=== PATIENT | male | born 1945 | race Caucasian/White ===

== ENCOUNTER 2022-07-11 08:56 | Outpatient (REF) | payer MEDICARE, SELFPAY ==
--- NOTE | ~2022-07-11 | CT_ITS ---
EXAMINATION: CT HEAD WITHOUT CONTRAST CLINICAL INFORMATION: 77-year-old with mild cognitive impairment. COMPARISON: 12/22/2021 CT brain. TECHNIQUE: Contiguous axial imaging was performed from the skull base to vertex without intravenous administration of contrast. This CT examination was performed using dose optimization techniques as appropriate, variously including the following: *Automated exposure control *Adjustment of mA and/or kV according to patient size (this includes techniques or standardized protocols for targeted exams where dose is matched to indication/reason for exam; i.e. extremities or head) *Use of iterative reconstruction technique DLP: 750.00 mGy-cm FINDINGS: Brain Volume: Redemonstrated is moderate generalized supratentorial brain parenchymal volume loss and predominantly mild diffuse generalized cerebellar volume loss and [id number] vermian volume loss, stable in appearance. Structural: Cavum septum pellucidum again noted with prominence of the superior vermian cistern, stable in appearance. Brain and Meninges: Redemonstrated are scattered patchy and focally confluent zones of hypodensity in the subcortical and deep white matter of both cerebral hemispheres, similar in appearance to the previous study consistent with chronic ischemic microangiopathy. Small chronic lacunar infarct versus perivascular space in the left external capsule is stable. No acute territorial infarct, hemorrhage, extra-axial fluid collection, space-occupying process or mass effect. There is a 2.5 mm hypodensity in the posterior limb of the left internal capsule, which is a new finding since previous exam, and may reflect a tiny lacunar infarct. There is a tiny hypodensity in the ventral hector slightly to the left of midline which is difficult to visualize on the previous study and may reflect a tiny remote infarct since the previous study. Ventricles and Subarachnoid Spaces: Redemonstrated is 3rd and lateral ventriculomegaly and mild 4th ventriculomegaly largely stable in appearance, likely reflecting volume loss. Diffuse prominence of the sulcal spaces bilaterally consistent with volume loss again noted. Orbital Structures: No interval change. Bilateral lens extractions again noted. Osseous Structures, Sinuses/Mastoids, Extracranial Soft Tissues: The bony structures appear intact with a stable deformity of the anterior right frontal calvarium as noted on previous study. The visualized airspaces are unopacified, with bilateral medial maxillary antrostomies noted. The visualized extracranial soft tissue structures are unremarkable. CT/CT head/brain wo IV con IMPRESSION: 1. Findings consistent with chronic ischemic microangiopathy in the white matter of both cerebral hemispheres similar in appearance to the previous study. No acute territorial infarct, hemorrhage, extra-axial fluid collection, space-occupying process or mass effect. 2. Possible tiny, chronic lacunar infarcts in the posterior limb of the left internal capsule and ventral hector, new from previous study. 3. Stable ventriculomegaly likely reflecting volume loss. 4. 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
== END 2022-07-11 08:57 | disposition home or self-care (01) ==
LOC: HO.CT 08:56
PROVIDERS: PCP Internal Medicine; Visit Provider Psychiatry & Neurology Neurology
DX: G31.84 Mild cognitive impairment of uncertain or unknown etiology (principal)
CPT/HCPCS: 70450

== ENCOUNTER 2023-07-27 07:19 | Day surgery (SDC) | payer MEDICARE, SELFPAY ==
--- NOTE | 2023-07-25 11:48 | HO.ANESPROP2 ---
Documented by User: Doris Mcgowan NP 07/26/23 09:59 HPI - Anesthesia Eval Consult details Narrative: 78yo M for Upper Endoscopy and Colonoscopy Follows [facility] cardiology - Stable at last office visit 07/2022 [facility] Past Medical History Medical History Afib Pacemaker Environmental allergies Anxiety COPD (chronic obstructive pulmonary disease) Hypertriglyceridemia GERD (gastroesophageal reflux disease) HTN (hypertension) Surgical History Surgical History Hx of esophagogastroduodenoscopy Hx of colonoscopy Social History Social History Patient Tobacco Use Status: Never used Tobacco Are you DNR?: No Advance Directives: No Advance Directives Information Provided: Yes Nutrition Risks: No Nutritional Risk Meds Allergies Allergy/AdvReac Type Severity Reaction Status Date / Time shellfish derived Allergy Unknown ANAPHYLAXIS Verified 07/27/23 08:05 [SHELLFISH DERIVED] Home Medications ?Medication ?Instructions ?Recorded ?Confirmed ?Last Taken ?Type Vitamin D3 1 cap PO DAILY 07/25/23 07/25/23 Unknown History albuterol sulfate 90 mcg/actuation 2 puff inhalation QID PRN asthma 07/25/23 07/25/23 Unknown History aerosol inhaler amlodipine 10 mg tablet 10 mg PO DAILY 07/25/23 07/25/23 07/27/23 History benralizumab 30 mg/mL subcutaneous 30 mg subcut 07/25/23 Unknown History auto-injector (Fasenra Pen) buspirone 7.5 mg tablet 7.5 mg PO BID 07/25/23 07/25/23 Unknown History dabigatran etexilate 150 mg capsule 150 mg PO DAILY 07/25/23 07/25/23 07/23/23 History fenofibrate micronized 200 mg 200 mg PO DAILY 07/25/23 07/25/23 Unknown History capsule fluticasone fur. 200 mcg-umeclid 1 ea inhalation DAILY 07/25/23 07/25/23 Unknown History 62.5 mcg-vilant 25 mcg inhalat.powder (Trelegy Ellipta) hydralazine 25 mg tablet 25 mg PO TID 07/25/23 07/25/23 Unknown History lisinopril 40 mg tablet 40 mg PO DAILY 07/25/23 07/25/23 Unknown History montelukast 10 mg tablet 10 mg PO DAILY 07/25/23 07/25/23 Unknown History pantoprazole 40 mg tablet,delayed 40 mg PO DAILY 07/25/23 07/25/23 Unknown History release peg 400-propylene glycol (PF) 0.4 1 drp ophthalmic (eye) DAILY 07/25/23 07/25/23 Unknown History %-0.3 % eye drops in a dropperette (Systane (PF)) venlafaxine 225 mg tablet,extended 225 mg PO DAILY 07/25/23 07/25/23 Unknown History release 24 hr Exam Narrative Narrative: Pacer interrogateion 03/2023 on chart - Nml lead and device function ECHO 2022 LVEF 50-55% Severely dilated LA Trace to mild MR Moderate to severe TR Mildly dilated Asc Aorta @ 3.9cm Assessment and Plan Assessment Anesthesia Assessment: Chart Reviewed Documented by User: Elba Vuong MD 07/27/23 08:22 [facility] Past Medical History Medical History Afib Pacemaker Environmental allergies Anxiety COPD (chronic obstructive pulmonary disease) Hypertriglyceridemia GERD (gastroesophageal reflux disease) HTN (hypertension) Family History Family history of problems with anesthesia: No Surgical History Surgical History Hx of esophagogastroduodenoscopy Hx of colonoscopy History of Problems with Anesthesia: No Social History Social History Patient Tobacco Use Status: Never used Tobacco Are you DNR?: No Advance Directives: No Advance Directives Information Provided: Yes Nutrition Risks: No Nutritional Risk Meds Allergies Allergy/AdvReac Type Severity Reaction Status Date / Time shellfish derived Allergy Unknown ANAPHYLAXIS Verified 07/27/23 08:05 [SHELLFISH DERIVED] Home Medications ?Medication ?Instructions ?Recorded ?Confirmed ?Last Taken ?Type Vitamin D3 1 cap PO DAILY 07/25/23 07/25/23 Unknown History albuterol sulfate 90 mcg/actuation 2 puff inhalation QID PRN asthma 07/25/23 07/25/23 Unknown History aerosol inhaler amlodipine 10 mg tablet 10 mg PO DAILY 07/25/23 07/25/23 07/27/23 History benralizumab 30 mg/mL subcutaneous 30 mg subcut 07/25/23 Unknown History auto-injector (Fasenra Pen) buspirone 7.5 mg tablet 7.5 mg PO BID 07/25/23 07/25/23 Unknown History dabigatran etexilate 150 mg capsule 150 mg PO DAILY 07/25/23 07/25/23 07/23/23 History fenofibrate micronized 200 mg 200 mg PO DAILY 07/25/23 07/25/23 Unknown History capsule fluticasone fur. 200 mcg-umeclid 1 ea inhalation DAILY 07/25/23 07/25/23 Unknown History 62.5 mcg-vilant 25 mcg inhalat.powder (Trelegy Ellipta) hydralazine 25 mg tablet 25 mg PO TID 07/25/23 07/25/23 Unknown History lisinopril 40 mg tablet 40 mg PO DAILY 07/25/23 07/25/23 Unknown History montelukast 10 mg tablet 10 mg PO DAILY 07/25/23 07/25/23 Unknown History pantoprazole 40 mg tablet,delayed 40 mg PO DAILY 07/25/23 07/25/23 Unknown History release peg 400-propylene glycol (PF) 0.4 1 drp ophthalmic (eye) DAILY 07/25/23 07/25/23 Unknown History %-0.3 % eye drops in a dropperette (Systane (PF)) venlafaxine 225 mg tablet,extended 225 mg PO DAILY 07/25/23 07/25/23 Unknown History release 24 hr Exam Airway Mallampati Class: II TM Dist: >3cm Neck ROM: Limited Heart: rrr Lungs: ta Assessment and Plan Assessment Anesthesia Assessment: Anesthesia Plan Discussed Final Anesthetic Review Family History of Problems with Anesthesia: No History of Problems with Anesthesia: No NPO: Yes ASA Class: III Final Preanesthetic Review: No Changes in Pt Med Stat, Meds/Allgs Chart Reviewed, Consent Obtained/Reviewed and Anes Risks/Benef Reviewed Patient Risk: Intermediate Procedure Risk: Low Anesthetic Plan Anesthetic Plan: MAC: Disposition: Standard PACU
[2023-07-25 14:22] VITALS: BMI 21.6
[2023-07-27] VITALS (7 sets, daily range): BP systolic 83–136; BP diastolic 38–72; PULSE 60–62; RESP 18; TEMP 36.1–36.6; O2SAT 96–100; BMI 21.5
[2023-07-27] MEDS: Lactated Ringers 1,000 ML 50 ML IVCONT (08:16)
--- NOTE | 2023-07-27 09:02 | MHC.SHP ---
Pre-Procedural Eval Section A - 24 Hr Update-Section A only Date of Service: 07/27/23 Section B - Complete if H&P > 30 days Chief Complaint: Gastro-esophageal reflux disease without esophagit Details of Present Illness: see H&P no changes Relevant Family History (Specify if Yes): No Relevant Social History: None Present Medications: see Short Stay Collaborative assessment Medical History: No relevant PMH History of Previous Operations: No relevant previous surgery Allergies: Allergies Allergy/AdvReac Type Severity Reaction Status Date / Time shellfish derived Allergy Unknown ANAPHYLAXIS Verified 07/27/23 08:05 [SHELLFISH DERIVED] Review of Systems Sugical H&P ROS: Negative: Constitution, Cardiovascular, Respiratory, Neurological, Psychiatric, Hem-Onc, Allergic/Immunologic, Gastrointestinal, Genitourinary, Musculoskeletal, Integumentary, Endocrine and Eyes/Ears/Nose/Throat Exam Surgical H&P Exam: Normal: HEENT, Normal: Heart, Normal: Lungs, Normal: Extremities, Normal: Abdomen, Normal: Skin and Normal: Neurological Plan Diagnosis/Plan: Unchanged I have reviewed the history and physical and performed a pertinent physical examination on my patient. No changes have occurred unless specified. Time Spent With Patient Time: Total time managing care of this patient today ____ minutes.
--- NOTE | 2023-07-27 10:43 | OP_ITS ---
DATE OF SERVICE: 07/27/2023 SURGEON: Saulo Antunez MD INDICATIONS: 1. Gastroesophageal reflux disease. 2. Colon cancer screening. PREOPERATIVE DIAGNOSIS: POSTOPERATIVE DIAGNOSIS: PROCEDURE PERFORMED: ESTIMATED BLOOD LOSS: COMPLICATIONS: ANESTHESIA: Monitored anesthesia care. ASSISTANTS: SPECIMENS: PROCEDURES PERFORMED: Upper endoscopy with biopsy, colonoscopy to the terminal ileum with snare polypectomy and biopsy. DESCRIPTION OF PROCEDURE: A history and physical was performed. The risks and benefits of the procedure were explained to the patient and informed consent was obtained. The patient was placed in the left lateral decubitus position. The Olympus video gastroscope was introduced into the esophagus, stomach, and duodenum. Examination was performed and the scope was removed. He was repositioned for colonoscopy. A digital rectal exam was performed and was found to be normal. The Olympus pediatric video colonoscope was introduced into the rectum and advanced to the cecum. The cecum was identified by transillumination, palpation, and identification of ileocecal valve. Examination was performed and the scope was removed. He tolerated both procedures well and was returned to recovery area in stable condition. FINDINGS: Upper endoscopy, esophagus: The esophagus showed a pseudomembrane, but no esophagitis. Biopsies were obtained from the EG junction and at 30 cm. Stomach: The stomach showed no evidence of masses, ulcers, or polyps. Antral biopsies were obtained. Duodenum: The bulb and 2nd portion were normal. Colonoscopy: The terminal ileum was normal. The visualized colonic mucosa was within normal limits without evidence of masses or ulcers. In the cecum, were 2 small polyps measuring less than 5 mm. These were removed with a hot snare. At 50 cm, a less than 5 mm sessile polyp, which was removed with the biopsy forceps. No other polyps were identified. The quality of the prep was good. IMPRESSION: 1. Colon polyps. 2. Gastroesophageal reflux disease. RECOMMENDATION: Follow up the biopsy results. MD KARLOS Miller/ROSELIAL / [id number]
== END 2023-07-27 11:00 | disposition home or self-care (01) ==
PROVIDERS: PCP Internal Medicine; Visit Provider Internal Medicine Gastroenterology
PROC: (CPT 45385; principal; 2023-07-27 09:00)
DX: Z12.11 Encounter for screening for malignant neoplasm of colon (principal); D12.6 Benign neoplasm of colon, unspecified; Z86.010 Personal history of colon polyps; K21.00 Gastro-esophageal reflux disease with esophagitis, without bleeding; I10 Essential (primary) hypertension
CPT/HCPCS: 45385; 45380; 88305; 88313; 88342; J2704